=== PATIENT | male | born 1965 | race Caucasian/White ===

== ENCOUNTER 2021-03-17 23:03 | Emergency (ER) | payer MEDICAID, SELFPAY ==
--- NOTE | ~2021-03-17 | CT_ITS ---
EXAMINATION: CT ABDOMEN AND PELVIS WITHOUT CONTRAST CLINICAL INFORMATION: Flank pain COMPARISON: None TECHNIQUE: Multidetector volumetric imaging was performed from the superior aspect of the liver through the pubic symphysis. Sagittal and coronal reformatted images were obtained on the technologist's workstation. This CT examination was performed using dose optimization techniques as appropriate, variously including the following: *Automated exposure control *Adjustment of mA and/or kV according to patient size (this includes techniques or standardized protocols for targeted exams where dose is matched to indication/reason for exam; i.e. extremities or head) *Use of iterative reconstruction technique DLP: 882 mGy-cm FINDINGS: LUNG BASES: The visualized lung bases are unremarkable. LIVER, GALLBLADDER, AND BILIARY TREE: The liver is normal in size, shape, and attenuation. No focal hepatic lesion or biliary ductal dilatation is present. Cholelithiasis is noted. PANCREAS: Unremarkable. SPLEEN: Unremarkable. ADRENAL GLANDS: Unremarkable. KIDNEYS AND URETERS: There is a 5 mm calculus at or just beyond the right ureterovesicular junction, with moderate hydronephrosis. No left hydronephrosis or calculus. BLADDER: Partially distended with right-sided calculus as noted above. GASTROINTESTINAL TRACT: Colonic diverticulosis is noted. The small and large bowel are otherwise unremarkable without evidence of obstruction or pericolonic inflammatory change. The appendix is unremarkable. No free fluid or free air is seen. ABDOMINAL WALL: No significant hernia is appreciated. LYMPH NODES: Normal. VASCULAR: Scattered atherosclerotic calcifications noted. PELVIC VISCERA: Unremarkable. OSSEOUS STRUCTURES: Degenerative changes are present in the spine, most severe at L4-L5. CT/CT abdomen pelvis wo con IMPRESSION: 1. Calculus measuring 5 mm at or just beyond the right ureterovesicular junction, with moderate hydronephrosis. 2. Cholelithiasis. 3. Colonic diverticulosis.
[2021-03-18 00:03] VITALS: BP 157/102; PULSE 77; RESP 18; TEMP 36.4; O2SAT 97; BMI 33.5
[2021-03-18 00:08] LABS: MANUAL DIFF FLAG NO
[2021-03-18 00:09] LABS: Basophils Absolute Auto 0.1 X10*3/uL (0.0-0.2); Basophils Percent Auto 0.6 % (0-2); Eosinophils Absolute Auto 0.4 X10*3/uL (0.0-0.4); Eosinophils Percent Auto 3.2 % (0-4); Glucose Urine UA NEG (NEG); Hematocrit 44.3 % (42-52); Hemoglobin 14.6 g/dl (14.0-18.0); Imm Gran Abs Auto 0.04 X10*3/uL (0.00-0.03); Imm Gran Pct Auto 0.4 % (0.0-0.4); Leukocyte Esterase Urine NEG (NEG); Lymphocytes Absolute Auto 1.4 X10*3/uL (1.2-4.9); Mean Corpuscular Hemoglobin 29.3 pg (27.0-33.0); Mean Platelet Volume 9.7 fL (9.4-12.4); Monocytes Percent Auto 8.8 % (2-11); Nitrite Urine NEG (NEG); PH 5.5 (5.0-8.0); Platelet Count 255 X10*3/uL (160-400); Red Blood Count 4.98 X10*6/uL (4.60-5.80); Red Cell Distribution Width 12.7 % (11.0-16.0); Specific Gravity - Urine >= 1.030 (1.005-1.025); Urine Blood 3+ (NEG); Urine Ketones NEG (NEG); Urine Protein 1+ MG/DL (NEG-TRACE); White Blood Count 10.8 X10*3/uL (4.8-10.8)
[2021-03-18 00:13] LABS: Appearance Urine HAZY; Color Urine YELLOW
[2021-03-18 00:19] LABS: Bacteria Urine TRACE /LPF; Hyaline Casts Urine 0-2 /LPF; Mucus Urine 1+ /LPF; Renal Epithelial Cells Urine TRACE /LPF; Squamous Epithelial Cell Urine 1+ /LPF
[2021-03-18 00:31] LABS: Alanine Aminotransferase 21 U/L (0-40); Albumin Level 4.4 g/dL (3.5-5.0); Alkaline Phosphatase 97 U/L (39-117); Anion Gap 14 (12-20); Aspartate Amino Transferase 18 U/L (5-37); Bilirubin Direct 0.4 mg/dL (0.0-0.5); Bilirubin Total 1.1 mg/dL (0.0-1.0); Blood Urea Nitrogen 23 mg/dL (9-16); Calcium 9.4 mg/dL (8.4-10.2); Carbon Dioxide 25 mmol/L (22-29); Chloride 107 mmol/L (96-108); Creatinine Clr Calc Pharmacy 86.2; Estimated Glomerular Filt Rate 54; Glucose Random 136 mg/dL (60-115); Lipase 31 U/L (8-78); Potassium 3.7 mmol/L (3.3-5.1); Sodium 142 mmol/L (135-145); Total Protein 7.3 g/dL (6.5-8.0)
--- NOTE | 2021-03-18 02:48 | ED_ITS ---
HPI - Abdominal Pain General Chief Complaint: Back Pain/Injury Stated Complaint: passing a kidney stone? Time Seen by Provider: 03/18/21 01:15 Source: patient Mode of arrival: ambulatory History of Present Illness HPI narrative: 55-year-old male with history of hypertension comes in with complaints of intermittent right flank pain this started approximately 4:00 p.m. without associated fever, chills, nausea, vomiting. Patient states that the pain improved but then returned at approximately 10:00 p.m. with associated changes in ability to urinate prompting him to seek further evaluation at the emergency room. Otherwise, he denies any shortness of breath, chest pain/palpitations. Related Data Previous Rx's Medication Instructions Recorded prednisone 20 mg PO DAILY #4 tab 03/18/21 tamsulosin [Flomax] 0.4 mg PO BEDTIME #4 cap 03/18/21 Allergies Allergy/AdvReac Type Severity Reaction Status Date / Time No Known Allergies Allergy Unverified 05/20/20 14:45 Review of Systems Review of Systems Pertinent positives and negatives as stated in HPI 10 point review of systems is otherwise negative. Physical Exam Vital Signs: Vital Signs: Last Vital Signs Temp 97.6 F 03/18/21 00:03 Pulse 77 03/18/21 00:03 Resp 18 03/18/21 00:03 BP 157/102 H 03/18/21 00:03 Pulse Ox 97 03/18/21 00:03 Body Mass Index 33.5 VITAL SIGNS: Reviewed. GENERAL: Well developed, well nourished, in no acute distress. HEAD: Normocephalic/atraumatic, EYES: PERRLA, EOMI OROPHARYNX: no oral lesions noted, posterior pharynx clear LUNGS: Normal breath sounds. No adventitious sounds or accessory muscle use. SpO2<97> CARDIOVASCULAR: Regular rate and rhythm without noted murmurs ABDOMEN: Soft, non-tender, non-distended with bowel sounds, no CVA tenderness. SKIN: Inspection of the skin reveals no rashes NEUROLOGIC: Alert and oriented x 4. Course Course Course Narrative: 55-year-old male with history and clinical presentation consistent with likely renal colic. Review of all investigations consistent with hematuria and resulting CT scan which shows a 5 mm stone. All results and findings discussed with the patient at bedside and on re-evaluation patient states he has had complete resolution of his pain after receiving the combination analgesics. MDM - Abdominal Pain Lab Data Result diagrams: 03/18/21 00:02 03/18/21 00:02 Labs: Lab Results 03/18/21 03/18/21 03/18/21 Range/Units 00:02 00:02 00:02 WBC 10.8 (4.8-10.8) X10*3/uL RBC 4.98 (4.60-5.80) X10*6/uL Hgb 14.6 (14.0-18.0) g/dl Hct 44.3 (42-52) % MCV 89.0 (80-98) fL MCH 29.3 (27.0-33.0) pg MCHC 33.0 (31.0-36.0) g/dl RDW 12.7 (11.0-16.0) % Plt Count 255 (160-400) X10*3/uL MPV 9.7 (9.4-12.4) fL Immature Gran % (Auto) 0.4 (0.0-0.4) % Neut % (Auto) 74.0 H (45-73) % Lymph % (Auto) 13.0 L (20-40) % [place] % (Auto) 8.8 (2-11) % Eos % (Auto) 3.2 (0-4) % Baso % (Auto) 0.6 (0-2) % Lymph # (Auto) 1.4 (1.2-4.9) X10*3/uL [place] # (Auto) 1.0 (0.1-1.2) X10*3/uL Eos # (Auto) 0.4 (0.0-0.4) X10*3/uL Baso # (Auto) 0.1 (0.0-0.2) X10*3/uL Abs Immat Gran (auto) 0.04 H (0.00-0.03) X10*3/uL Absolute Neuts (auto) 8.0 (2.0-8.3) X10*3/uL Absolute Nucleated RBC 0.000 (0.0-0.012) X10*3/uL Nucleated RBC % (auto) 0.0 (0.0-0.2) /100WBC Sodium 142 (135-145) mmol/L Potassium 3.7 (3.3-5.1) mmol/L Chloride 107 (96-108) mmol/L Carbon Dioxide 25 (22-29) mmol/L Anion Gap 14 (12-20) BUN 23 H (9-16) mg/dL Creatinine 1.36 (0.5-1.4) mg/dL Estim Creat Clear Calc 86.2 Estimated GFR 54 Random Glucose 136 H (60-115) mg/dL Calcium 9.4 (8.4-10.2) mg/dL Total Bilirubin 1.1 H (0.0-1.0) mg/dL Direct Bilirubin 0.4 (0.0-0.5) mg/dL AST 18 (5-37) U/L ALT 21 (0-40) U/L Alkaline Phosphatase 97 (39-117) U/L Total Protein 7.3 (6.5-8.0) g/dL Albumin 4.4 (3.5-5.0) g/dL Lipase 31 (8-78) U/L Urine Color YELLOW Urine Appearance HAZY Urine pH 5.5 (5.0-8.0) Ur Specific [place] >= 1.030 H (1.005-1.025) Urine Protein 1+ H (NEG-TRACE) MG/DL Urine Glucose (UA) NEG (NEG) MG/DL Urine Ketones NEG (NEG) MG/DL Urine Blood 3+ H (NEG) Urine Nitrite NEG (NEG) Ur Leukocyte Esterase NEG (NEG) Urine RBC 76-150 H (0) /HPF Urine WBC 1-4 (0-4) /HPF Ur Squamous Epith Cells 1+ /LPF Ur Renal Epithelial Cell TRACE /LPF Urine Bacteria TRACE /LPF Hyaline Casts 0-2 /LPF Urine Mucus 1+ /LPF Discharge Plan Discharge Clinical Impression: Ureterolithiasis Patient Disposition: Home, Self-Care Instructions: Ureteral Stones (ED) Additional Instructions: 1. Resume all home medications as prescribed. 2. Tylenol 1000 mg, orally, every 6 hours as needed for pain control. Do not exceed 4000 mg within 24 hours. 3. Ibuprofen 400 mg, orally with milk or food, every 6 hours as needed for pain control. Recommend taking this in combination with the Tylenol for added symptom relief. 4. Please increase fluid hydration especially with water. 5. You have been provided with a referral to see Urology, Dr. Calvin. Please call the office in the morning. Return for acute worsening of symptoms. Prescriptions: New tamsulosin [Flomax] 0.4 mg capsule 0.4 mg PO BEDTIME Qty: 4 RF: 0 prednisone 20 mg tablet 20 mg PO DAILY Qty: 4 RF: 0 Referrals: Emir Calvin MD [Physician] - 2 days (Evaluate and treat as indicated for 5 mm stone.) [facility] Past Medical History Source: nursing notes reviewed Social History Social History Advance Directives: No
[2021-03-18] MEDS: Ibuprofen 400 MG TABLET PO (03:11)
[2021-03-18] MEDS: Acetaminophen 325 MG TABLET 975 MG PO (03:11)
== END 2021-03-18 04:33 | disposition home or self-care (01) ==
PROVIDERS: Emergency Provider Student in an Organized Health Care Education/Training Program
DX: N20.1 Calculus of ureter (principal); I10 Essential (primary) hypertension
CPT/HCPCS: 36415; 74176; 80048; 80076; 81001; 83690; 85025; 99283; 99284

== ENCOUNTER 2021-04-20 14:07 | Outpatient (REF) | payer MEDICAID, SELFPAY ==
--- NOTE | ~2021-04-20 | US_ITS ---
EXAMINATION: US RETROPERITONEAL LIMITED (RENAL ONLY) CLINICAL INFORMATION: Calculus of ureter. COMPARISON: CT abdomen and pelvis 03/18/2021. TECHNIQUE: Real-time imaging of the kidneys. FINDINGS: RIGHT KIDNEY: 13.5 x 6.2 x 6.6 cm (SAG x AP x TRV). The kidney is normal in size, contour, and echogenicity. Renal cortical thickness is normal. No calculi or focal parenchymal lesions. No hydronephrosis. LEFT KIDNEY: 13.3 x 5.5 x 5.6 cm (SAG x AP x TRV). The kidney is normal in size, contour, and echogenicity. Renal cortical thickness is normal. No calculi or focal parenchymal lesions. No hydronephrosis. US/US renal BI IMPRESSION: Unremarkable examination.
== END 2021-04-20 14:08 | disposition home or self-care (01) ==
LOC: HO.HMGCX 14:07
PROVIDERS: PCP Pediatrics; Visit Provider Urology
DX: N20.1 Calculus of ureter (principal); N20.0 Calculus of kidney
CPT/HCPCS: 76775

== ENCOUNTER → 2021-05-31 13:23 | Outpatient (BNVA) | payer MEDICAID, SELFPAY | PROVIDERS: Visit Provider Urology ==

== ENCOUNTER 2022-05-05 14:14 | Outpatient (REF) | payer MEDICAID, SELFPAY ==
--- NOTE | ~2022-05-05 | US_ITS ---
EXAMINATION: US RETROPERITONEAL LIMITED (RENAL ONLY) CLINICAL INFORMATION: Calculus of kidney. COMPARISON: Renal ultrasound 04/20/2021. CT abdomen and pelvis 03/18/2021. TECHNIQUE: Real-time imaging of the kidneys. FINDINGS: RIGHT KIDNEY: 13.3 x 6.0 x 5.7 cm (SAG x AP x TRV). The kidney is normal in size, contour, and echogenicity. Renal cortical thickness is normal. No calculi or focal parenchymal lesions. No hydronephrosis. LEFT KIDNEY: 13.2 x 5.6 x 4.9 cm (SAG x AP x TRV). The kidney is normal in size, contour, and echogenicity. Renal cortical thickness is normal. No calculi or focal parenchymal lesions. No hydronephrosis. US/US renal BI IMPRESSION: Normal renal US.
== END 2022-05-05 14:15 | disposition home or self-care (01) ==
LOC: HO.HMGCX 14:14
PROVIDERS: PCP Pediatrics; Visit Provider Urology
DX: N20.0 Calculus of kidney (principal)
CPT/HCPCS: 76775

== ENCOUNTER → 2022-05-31 12:58 | Outpatient (BNVA) | payer MEDICAID, SELFPAY | PROVIDERS: PCP Pediatrics; Visit Provider Urology | DX: Z12.5 Encounter for screening for malignant neoplasm of prostate (principal); N20.0 Calculus of kidney | CPT/HCPCS: 99212 ==

== ENCOUNTER 2022-07-20 19:52 | Emergency (ER) | payer OTHER, SELFPAY ==
--- NOTE | ~2022-07-20 | XR_ITS ---
EXAMINATION: XR hand RT 2V, XR ankle RT 2V CLINICAL INFORMATION: Reason for Exam fall pain COMPARISON: None. TECHNIQUE: 3 views right hand; 3 views right ankle FINDINGS: Right hand: No acute fracture or dislocation. Minimal joint space narrowing at the index finger DIP joint. The joint spaces throughout the hand and wrist are otherwise maintained. No osteophytes or erosions. Right ankle: No acute fracture or dislocation. Ankle mortise is congruent and intact. No ankle joint effusion. Ankle and subtalar joint spaces are maintained. Prominent plantar calcaneal spur. Soft tissue swelling overlying the lateral malleolus. XR/XR ankle RT 2V IMPRESSION: 1. No acute fracture or dislocation identified at the right hand or ankle. 2. Soft tissue swelling overlying the lateral malleolus.
--- NOTE | ~2022-07-20 | CT_ITS ---
EXAMINATION: CT HEAD WITHOUT CONTRAST CLINICAL INFORMATION: Fall. COMPARISON: None TECHNIQUE: Contiguous axial imaging was performed from the skull base to vertex without intravenous administration of contrast. This CT examination was performed using dose optimization techniques as appropriate, variously including the following: *Automated exposure control *Adjustment of mA and/or kV according to patient size (this includes techniques or standardized protocols for targeted exams where dose is matched to indication/reason for exam; i.e. extremities or head) *Use of iterative reconstruction technique DLP: 241 mGy-cm FINDINGS: There is no evidence of acute intracranial hemorrhage or edematous territorial infarction. A few foci of hypoattenuation in the periventricular and deep white matter are consistent with mild microangiopathy. May-white matter differentiation is preserved. Proportional prominence of the ventricles and sulcal spaces. No evidence for obstructive hydrocephalus. No abnormal mass effect or midline shift. No extra-axial fluid collections. Suspect age indeterminate subtle nondisplaced nasal bone fractures. No significant soft tissue finding. Partial opacification of the right greater than left maxillary sinuses and ethmoid air cells with hyperattenuating debris in the left maxillary sinus. Mild mucosal thickening of the sphenoidal sinuses. The mastoids and middle ear cavities are clear. Densities in the lumen of both external auditory canals are likely related with cerumen. CT/CT head/brain wo IV con IMPRESSION: 1. No acute intracranial abnormality. 2. Suspect age-indeterminate nasal bone fractures. Recommend correlation with point tenderness. 3. Paranasal sinus disease, recommend correlation for acute sinusitis.
--- NOTE | ~2022-07-20 | XR_ITS ---
EXAMINATION: XR hand RT 2V, XR ankle RT 2V CLINICAL INFORMATION: Reason for Exam fall pain COMPARISON: None. TECHNIQUE: 3 views right hand; 3 views right ankle FINDINGS: Right hand: No acute fracture or dislocation. Minimal joint space narrowing at the index finger DIP joint. The joint spaces throughout the hand and wrist are otherwise maintained. No osteophytes or erosions. Right ankle: No acute fracture or dislocation. Ankle mortise is congruent and intact. No ankle joint effusion. Ankle and subtalar joint spaces are maintained. Prominent plantar calcaneal spur. Soft tissue swelling overlying the lateral malleolus. XR/XR hand RT 2V IMPRESSION: 1. No acute fracture or dislocation identified at the right hand or ankle. 2. Soft tissue swelling overlying the lateral malleolus.
[2022-07-20 20:01] VITALS: BP 147/90; PULSE 82; RESP 18; TEMP 36.3; O2SAT 97; BMI 33.1
--- NOTE | 2022-07-20 20:01 | ED_ITS ---
HPI - Extremity Injury (Lower) General Chief Complaint: Extremity Injury, Lower Stated Complaint: right ankle work inj Time Seen by Provider: 07/20/22 20:14 Related Data Home Medications Medication Instructions Recorded Confirmed hydrochlorothiazide 25 mg tablet 25 mg PO DAILY 05/31/21 lisinopril 20 mg tablet 20 mg PO BID 05/31/21 Previous Rx's Medication Instructions Recorded prednisone 20 mg tablet 20 mg PO DAILY #4 tabs 03/18/21 tamsulosin 0.4 mg capsule 0.4 mg PO DAILY 10 days #10 caps 03/18/21 tamsulosin 0.4 mg capsule (Flomax) 0.4 mg PO BEDTIME #4 caps 03/18/21 Allergies Allergy/AdvReac Type Severity Reaction Status Date / Time No Known Allergies Allergy Verified 05/31/21 13:25 [facility] Past Medical History Medical History Colon cancer screening HTN (hypertension) Hyperplastic colonic polyp Obesity Olecranon bursitis, right elbow Sigmoid diverticulosis Tubular adenoma of colon Surgical History History of surgery Social History Social History Advance Directives: No Advance Directives Information Provided: Yes Physical Exam Vital Signs: Vital Signs: Last Vital Signs Temp 97.4 F 07/20/22 20:01 Pulse 82 07/20/22 20:01 Resp 18 07/20/22 20:01 BP 147/90 H 07/20/22 20:01 Pulse Ox 97 07/20/22 20:01 O2 Del Method 07/20/22 20:01 BMI result Body Mass Index 33.1 Course Course Course Narrative: RMHari--57-year-old male with a past medical history HTN, obesity, diverticulosis, complaining of right ankle, right hand from an injury s/p mechanical trip and fall [employer] around 1800. Denies taking anticoagulation. Denies LOC. Denies symptoms prior to fall Right ankle with mild lateral malleolar swelling and tenderness. Mild swelling to right hand with noted abrasions. Abrasion noted to right eyebrow Ankle/hand x-ray and head CT ordered Discharge Plan Discharge Clinical Impression: Ankle sprain, Concussion, Abrasion, Work related injury Patient Disposition: Home, Self-Care Instructions: Ankle Sprain (ED), Concussion (ED), Bone Bruise (ED) Additional Instructions: Take your medications as prescribed. If you were prescribed antibiotics today, it is important that you take your medication to their entirety, do not skip any doses, do not finish them early. Follow-up with your primary care provider this week. Follow up with the work connection and with ortho information below Return to the emergency department with new or worsening symptoms. In case of emergency call 911 You can take ibuprofen every 6 hours, Tylenol every 4 hours as needed for pain or discomfort. Rest your brain, limit screen time. Don't participate in activities for 3 weeks or until medically cleared. XR/XR hand RT & ankle 2V IMPRESSION: 1.? No acute fracture or dislocation identified at the right hand or ankle. 2.? Soft tissue swelling overlying the lateral malleolus. The work connection [phone] CT/CT head/brain wo IV con IMPRESSION: 1.? No acute intracranial abnormality. 2.? Suspect age-indeterminate nasal bone fractures. Recommend correlation with point tenderness. 3.? Paranasal sinus disease, recommend correlation for acute sinusitis. Prescriptions: No Action tamsulosin 0.4 mg capsule 0.4 mg PO DAILY 10 Days Qty: 10 0RF tamsulosin [Flomax] 0.4 mg capsule 0.4 mg PO BEDTIME Qty: 4 0RF prednisone 20 mg tablet 20 mg PO DAILY Qty: 4 0RF hydrochlorothiazide 25 mg tablet 25 mg PO DAILY lisinopril 20 mg tablet 20 mg PO BID [place] [facility] [place] [facility] [place]Provider Group] - 1 week Physician,Unknown J [Primary Care Provider] - 2 days Stand Alone Forms: Work/School Release Interventions: ED Discharge Assessment Last Done: 07/20/22 22:54 Discharge Date/Time: 07/20/22 22:55
--- NOTE | 2022-07-20 20:27 | ED_ITS ---
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 He tells me he has had issues with this ankle before. Patient was ambulatory upon arrival to the emergency department. Patient denies numbness, tingling. When he fell he hit his head, did not lose consciousness, denies headache, vision changes, dizziness, patient not on blood thinners. Also denies neck pain, shortness of breath, nausea, vomiting, abdominal pain. Related Data Home Medications Medication Instructions Recorded Confirmed hydrochlorothiazide 25 mg tablet 25 mg PO DAILY 05/31/21 lisinopril 20 mg tablet 20 mg PO BID 05/31/21 Previous Rx's Medication Instructions Recorded prednisone 20 mg tablet 20 mg PO DAILY #4 tabs 03/18/21 tamsulosin 0.4 mg capsule 0.4 mg PO DAILY 10 days #10 caps 03/18/21 tamsulosin 0.4 mg capsule (Flomax) 0.4 mg PO BEDTIME #4 caps 03/18/21 Allergies Allergy/AdvReac Type Severity Reaction Status Date / Time No Known Allergies Allergy Verified 05/31/21 13:25 Review of Systems Review of Systems: Constitutional : No Weight loss, No Fever, No Chills, No Fatigue, No Malaise ENT/Mouth : No sore throat, No Rhinorrhea Eyes: No Eye Pain, No Swelling, No Redness Cardiovascular : No Chest Pain, No SOB, No Dyspnea on Exertion, No Orthopnea, No Edema, No Palpitations Respiratory : No Cough, No Sputum, No Wheezing Gastrointestinal : No Nausea, No Vomiting, No Diarrhea, No Constipation, No abdominal Pain, No Hematochezia, No Melena Genitourinary : No Dysuria, No Urinary Frequency, No Hematuria, Musculoskeletal : + joint pain, No Myalgias, No Joint Swelling Skin : No Skin Lesions, No rash Neuro : No Weakness, No Numbness, No Dizziness, No Headache Psych : No Anxiety/Panic, No Depression All other systems reviewed and are negative Yes all other systems are reviewed and are negative [facility] Past Medical History Attestation statement: The following information was validated with the patient. Source: old records reviewed and nursing notes reviewed Medical History Colon cancer screening HTN (hypertension) Hyperplastic colonic polyp Obesity Olecranon bursitis, right elbow Sigmoid diverticulosis Tubular adenoma of colon Surgical History History of surgery Social History Social History Advance Directives: No Advance Directives Information Provided: Yes Physical Exam ED Vital Signs: Vital Signs - 24 hr 07/20/22 20:01 Temperature 97.4 F Pulse Rate 82 Respiratory Rate 18 Blood Pressure 147/90 H Pulse Oximetry 97 Oxygen Delivery Method Room Air BMI result Body Mass Index 33.1 vss Appearance: Alert.? Oriented X3.? No acute distress.? Head: Normocephalic, atraumatic, no step-offs or deformities +small abrasion overlying the right eyebrow. No evident laceration Eyes: Pupils equal, round and reactive to light.? Extraocular movements intact, pain-free, no nystagmus. Neck: Normal inspection.? Neck supple.? CVS: Normal heart rate and rhythm.? Pulses normal.? Respiratory: No respiratory distress.? Breath sounds normal.? Abdomen: Soft and nontender.? Skin: Skin warm and dry.? Normal skin color.? Normal skin turgor.? Extremities: No lower extremity edema.? No calf ttp. 5/5 strength to bilateral upper and lower extremities bilateral ankles with full range of motion, 2+ dorsalis pedis, posterior tibialis, anterior tibialis pulses equal bilateral. Neurovascularly intact. Normal sensation. Patient ambulating with steady gait without difficulties. No footdrop. No gross abnormalities or injuries. Full range of motion to bilateral hands, wrists, fingers, 2+ radial pulses. No wrist drop. Neurovascularly intact. No distracting injuries. Neuro: Oriented X 3.? No motor deficit.? No sensory deficit. CN 2-12 intact . Normal [id number], [id number], steady tandem gait with normal coordination. Normal rapid alternating movements. GCS-15, NIHSS- 0 Course Reevaluation(s) Reevaluation #1: X-ray of the right hand with no acute fracture, dislocation. Right ankle with Soft tissue swelling overlying the lateral malleolus. Likely right ankle sprain/strain. No evidence of fracture dislocation. CT pending Time: 21:21 Reevaluation #2: Educated patient on worrisome signs and symptoms and when to return. Educated on post concussive syndrome, handed him a handout on post concussive syndrome outlined worrisome signs and symptoms on discharge. Comfortable discharge home. Likely ankle sprain, concussion. No acute findings in the hand. Will give him follow-up with the were connection an orthopedic. Time: 21:21 Reevaluation #3: Patient does not have point tenderness to nose. Unlikely an acute finding. Time: 22:01 Medical Decision Making MDM Narrative Medical decision making narrative: 2030 57-year-old male presents to the emergency department work related injury fall with head strike, no loss of consciousness and right ankle pain. Patient ambulatory upon arrival. Patient reported hand pain on right to triage however denies to me. He has full range of motion to bilateral hands, fingers, wrist. NIH stroke scale 0. GCS 15. Physical examination benign. Neuro nonfocal. Cerebellar intact. Normal right ankle, neurovascularly intact. Small abrasion to right eyebrow. 5/5 strength to bilateral upper and lower extremities bilateral ankles with full range of motion, 2+ dorsalis pedis, posterior tibialis, anterior tibialis pulses equal bilateral. Neurovascularly intact. Normal sensation. Patient ambulating with steady gait without difficulties. No footdrop. No gross abnormalities or injuries. Full range of motion to bilateral hands, wrists, fingers, 2+ radial pulses. No wrist drop. Neurovascularly intact. No distracting injuries. Will rule out fracture/dislocation although unlikely. Likely sprain/strain. Un likely intracranial hemorrhage, stroke, posterior stroke. No signs of flail chest, pneumothorax. Plan at this time imaging. Medical Records Medical records reviewed: Yes I reviewed the patient's medical records. Lab Data Lab results reviewed: Yes I reviewed the patient's lab results. Discharge Plan Discharge Clinical Impression: Ankle sprain, Concussion, Abrasion, Work related injury Patient Disposition: Home, Self-Care Instructions: Ankle Sprain (ED), Concussion (ED), Bone Bruise (ED) Additional Instructions: Take your medications as prescribed. If you were prescribed antibiotics today, it is important that you take your medication to their entirety, do not skip any doses, do not finish them early. Follow-up with your primary care provider this week. Follow up with the work connection and with ortho information below Return to the emergency department with new or worsening symptoms. In case of emergency call 911 You can take ibuprofen every 6 hours, Tylenol every 4 hours as needed for pain or discomfort. Rest your brain, limit screen time. Don't participate in activities for 3 weeks or until medically cleared. XR/XR hand RT & ankle 2V IMPRESSION: 1.? No acute fracture or dislocation identified at the right hand or ankle. 2.? Soft tissue swelling overlying the lateral malleolus. The work connection [phone] CT/CT head/brain wo IV con IMPRESSION: 1.? No acute intracranial abnormality. 2.? Suspect age-indeterminate nasal bone fractures. Recommend correlation with point tenderness. 3.? Paranasal sinus disease, recommend correlation for acute sinusitis. Prescriptions: No Action tamsulosin 0.4 mg capsule 0.4 mg PO DAILY 10 Days Qty: 10 0RF tamsulosin [Flomax] 0.4 mg capsule 0.4 mg PO BEDTIME Qty: 4 0RF prednisone 20 mg tablet 20 mg PO DAILY Qty: 4 0RF hydrochlorothiazide 25 mg tablet 25 mg PO DAILY lisinopril 20 mg tablet 20 mg PO BID Referrals: [facility] [place] [facility] [Provider Group] - 1 week Physician,Unknown J [Primary Care Provider] - 2 days Stand Alone Forms: Work/School Release
== END 2022-07-20 22:55 | disposition home or self-care (01) ==
PROVIDERS: Emergency Provider Emergency Medicine
DX: S99.911A Unspecified injury of right ankle, initial encounter (principal); S90.511A Abrasion, right ankle, initial encounter; S06.0X0A Concussion without loss of consciousness, initial encounter; M79.641 Pain in right hand; R51.9 Headache, unspecified; X50.1XXA Overexertion from prolonged static or awkward postures, initial encounter; Y93.9 Activity, unspecified; Y92.9 Unspecified place or not applicable; Y99.0 Civilian activity done for income or pay; Z79.899 Other long term (current) drug therapy
CPT/HCPCS: 70450; 73120; 73600; 99282; 99284